=== PATIENT | female | born 1935 | race Caucasian/White ===

== ENCOUNTER 2023-07-29 07:52 | Inpatient (IN) | payer OTHER ==
[2023-07-29 10:12] LABS: EOS % 1.2 % (0-4.5); HEMATOCRIT 37.5 % (32.4-45.2); HEMOGLOBIN 12.2 GM/dL (10.7-15.3); LYMPH % 20.2 % (8-40); MCHC 32.6 g/dl (32.0-36.0); MEAN CELL VOLUME 79.8 fl (80-96); MEAN PLT VOLUME 8.6 fl (7.5-11.1); MONO % 11.2 % (3.8-10.2); NEUT % 66.4 % (42.8-82.8); PLATELET COUNT 273 10^3/uL (134-434); RDW 15.8 % (11.6-15.6); WHITE BLOOD COUNT 9.4 K/mm3 (4.0-10.0)
[2023-07-29 10:20] LABS: INR 1.03 (0.83-1.09); PROTHROMBIN TIME (PATIENT) 11.9 SEC (9.7-13.0)
[2023-07-29 10:48] LABS: CHLORIDE 102 mmol/L (98-107); SODIUM 134 mmol/L (136-145)
[2023-07-29 10:50] LABS: CALCIUM 9.8 mg/dL (8.5-10.1)
[2023-07-29 10:51] LABS: ALBUMIN 3.9 g/dl (3.4-5.0); ANION GAP 2 mmol/L (4-13); BLOOD UREA NITROGEN 33.6 mg/dL (7-18); CO2 30 mmol/L (21-32); GLUCOSE,RANDOM 92 mg/dL (74-106)
[2023-07-29 10:54] LABS: SGOT/AST 23 U/L (15-37); SGPT/ALT 33 U/L (13-61)
[2023-07-29 10:56] LABS: BILIRUBIN,TOTAL 0.4 mg/dL (0.2-1); TOT PROT 6.7 g/dl (6.4-8.2)
[2023-07-29 10:57] LABS: ALK PHOS 51 U/L (45-117)
[2023-07-29 11:18] LABS: CREATININE 0.9 mg/dL (0.55-1.3)
[2023-07-29 12:19] LABS: ERYTHROCYTE SEDIMENTATION RATE 6 mm/hr (0-30)
[2023-07-29] MEDS: ACETAMINOPHEN 325 MG TABLET (FP) PO PRN (20:57)
[2023-07-29] MEDS ORDERED: HEPARIN NA (PORCINE) 5,000 UNITS/ML 1ML VIAL ONE (21:29)
[2023-07-29] MEDS: HEPARIN NA (PORCINE) 5,000 UNITS/ML 1ML VIAL SQ SCH (21:35)
[2023-07-30 01:54] VITALS: BMI 23.8
[2023-07-30 08:29] LABS: EOS % 1.5 % (0-4.5); HEMATOCRIT 36.3 % (32.4-45.2); LYMPH % 28.6 % (8-40); MCH 26.4 pg (25.7-33.7); MCHC 33.1 g/dl (32.0-36.0); MEAN PLT VOLUME 8.2 fl (7.5-11.1); MONO % 11.3 % (3.8-10.2); NEUT % 57.6 % (42.8-82.8); PLATELET COUNT 238 10^3/uL (134-434); RBC 4.54 M/mm3 (3.60-5.2); RDW 15.7 % (11.6-15.6); WHITE BLOOD COUNT 8.2 K/mm3 (4.0-10.0)
[2023-07-30 08:34] LABS: POTASSIUM 4.5 mmol/L (3.5-5.1)
[2023-07-30 08:48] LABS: CALCIUM 9.4 mg/dL (8.5-10.1)
[2023-07-30 08:52] LABS: CREATININE 0.8 mg/dL (0.55-1.3)
[2023-07-30] MEDS ORDERED: methylPREDNISolone NA SUCC 40 MG/1 ML VIAL IVPUSH ONE ×3 (10:00→14:00)
[2023-07-30] MEDS ORDERED: ATENOLOL 50 MG TABLET (FP) PO SCH (10:00)
[2023-07-30] MEDS: FLUTICASONE/UMECLIDIN/VILANTER(200-62.5-25 TRELEGY ELLIPTA) INAHLER IH SCH (10:05)
[2023-07-30] MEDS: HEPARIN NA (PORCINE) 5,000 UNITS/ML 1ML VIAL SQ SCH ×2 (10:07→22:04)
[2023-07-30] MEDS: RAMIPRIL 5 MG CAPSULE PO SCH (11:47)
[2023-07-30] MEDS: ASPIRIN 81 MG CHEWABLE TABLETS PO SCH (11:47)
[2023-07-30] MEDS: HYDROCHLOROTHIAZIDE 12.5 MG CAPSULE (FP) PO SCH (11:49)
[2023-07-30] MEDS: ATORVASTATIN CA 10 MG TABLET (FP) PO SCH (11:50)
[2023-07-30] MEDS: MONTELUKAST NA 10 MG TABLET PO SCH (11:51)
[2023-07-30] MEDS: MEMANTINE HCL 10 MG TABLET (FP) PO SCH ×2 (11:51→22:05)
[2023-07-30] MEDS: EZETIMIBE 10 MG TABLET (FP) PO SCH (11:52)
[2023-07-30] MEDS: INSULIN SLIDING SCALE (NOVOLOG) 1 VIAL SQ SCH ×2 (17:35→22:53)
[2023-07-30] MEDS ORDERED: ALBUTEROL SO4 2.5/IPRATROPIUM 0.5 INH SOL 3 ML VIAL.NEB. NEB PRN (17:51)
[2023-07-30] MEDS: ACETAMINOPHEN 325 MG TABLET (FP) PO PRN (22:14)
[2023-07-31] MEDS: INSULIN SLIDING SCALE (NOVOLOG) 1 VIAL SQ SCH ×4 (06:35→22:29)
[2023-07-31] MEDS ORDERED: MELATONIN 5 MG TABLETS PO PRN (09:16)
[2023-07-31 10:43] LABS: BASO % 0.4 % (0-2.0); EOS % 0.2 % (0-4.5); HEMATOCRIT 37.5 % (32.4-45.2); HEMOGLOBIN 11.8 GM/dL (10.7-15.3); LYMPH % 17.6 % (8-40); MCH 25.7 pg (25.7-33.7); MCHC 31.4 g/dl (32.0-36.0); MEAN CELL VOLUME 81.6 fl (80-96); MEAN PLT VOLUME 8.8 fl (7.5-11.1); MONO % 6.5 % (3.8-10.2); NEUT % 75.3 % (42.8-82.8); PLATELET COUNT 270 10^3/uL (134-434); RDW 15.7 % (11.6-15.6); WHITE BLOOD COUNT 9.1 K/mm3 (4.0-10.0)
[2023-07-31] MEDS: ASPIRIN 81 MG CHEWABLE TABLETS PO SCH (10:53)
[2023-07-31] MEDS: HYDROCHLOROTHIAZIDE 12.5 MG CAPSULE (FP) PO SCH (10:53)
[2023-07-31] MEDS: MEMANTINE HCL 10 MG TABLET (FP) PO SCH ×2 (10:53→22:18)
[2023-07-31] MEDS: MONTELUKAST NA 10 MG TABLET PO SCH (10:53)
[2023-07-31 10:54] LABS: POTASSIUM 4.3 mmol/L (3.5-5.1)
[2023-07-31] MEDS: RAMIPRIL 5 MG CAPSULE PO SCH (10:54)
[2023-07-31] MEDS: EZETIMIBE 10 MG TABLET (FP) PO SCH (10:54)
[2023-07-31] MEDS: NEBIVOLOL 10 MG TABLET (FP) PO SCH (10:55)
[2023-07-31] MEDS: HEPARIN NA (PORCINE) 5,000 UNITS/ML 1ML VIAL SQ SCH ×2 (10:56→22:17)
[2023-07-31] MEDS: ATORVASTATIN CA 10 MG TABLET (FP) PO SCH (11:02)
[2023-07-31] MEDS: FLUTICASONE/UMECLIDIN/VILANTER(200-62.5-25 TRELEGY ELLIPTA) INAHLER IH SCH (11:05)
[2023-07-31 11:11] LABS: CALCIUM 9.5 mg/dL (8.5-10.1)
[2023-07-31 11:12] LABS: ALBUMIN 3.6 g/dl (3.4-5.0); BLOOD UREA NITROGEN 38.7 mg/dL (7-18); MAGNESIUM 1.9 mg/dL (1.8-2.4)
[2023-07-31 11:15] LABS: CREATININE 1.1 mg/dL (0.55-1.3); PHOSPHOROUS 3.5 mg/dL (2.5-4.9)
[2023-07-31 11:16] LABS: BILIRUBIN,TOTAL 0.9 mg/dL (0.2-1); TOT PROT 6.4 g/dl (6.4-8.2)
[2023-07-31] MEDS: ACETAMINOPHEN 325 MG TABLET (FP) PO PRN ×2 (14:15→22:23)
[2023-07-31] MEDS: BENZOCAINE/MENTH/CETYLPYRD CL 1 EACH LOZENGE MM PRN (22:18)
[2023-08-01] MEDS: INSULIN SLIDING SCALE (NOVOLOG) 1 VIAL SQ SCH ×4 (06:35→21:49)
[2023-08-01] MEDS: ASPIRIN 81 MG CHEWABLE TABLETS PO SCH (09:58)
[2023-08-01] MEDS: MONTELUKAST NA 10 MG TABLET PO SCH (09:58)
[2023-08-01] MEDS: EZETIMIBE 10 MG TABLET (FP) PO SCH (09:59)
[2023-08-01] MEDS: HYDROCHLOROTHIAZIDE 12.5 MG CAPSULE (FP) PO SCH (09:59)
[2023-08-01] MEDS: NEBIVOLOL 10 MG TABLET (FP) PO SCH (09:59)
[2023-08-01] MEDS: RAMIPRIL 5 MG CAPSULE PO SCH (09:59)
[2023-08-01] MEDS: MEMANTINE HCL 10 MG TABLET (FP) PO SCH ×2 (09:59→21:29)
[2023-08-01] MEDS: ATORVASTATIN CA 10 MG TABLET (FP) PO SCH (09:59)
[2023-08-01] MEDS: HEPARIN NA (PORCINE) 5,000 UNITS/ML 1ML VIAL SQ SCH ×2 (10:03→21:31)
[2023-08-01] MEDS: FLUTICASONE/UMECLIDIN/VILANTER(200-62.5-25 TRELEGY ELLIPTA) INAHLER IH SCH (10:03)
[2023-08-01 10:07] LABS: BASO % 0.6 % (0-2.0); EOS % 0.3 % (0-4.5); HEMATOCRIT 37.7 % (32.4-45.2); HEMOGLOBIN 12.2 GM/dL (10.7-15.3); LYMPH % 6.4 % (8-40); MCH 25.8 pg (25.7-33.7); MCHC 32.3 g/dl (32.0-36.0); MEAN CELL VOLUME 79.8 fl (80-96); MEAN PLT VOLUME 7.9 fl (7.5-11.1); MONO % 11.1 % (3.8-10.2); NEUT % 81.6 % (42.8-82.8); PLATELET COUNT 226 10^3/uL (134-434); RBC 4.73 M/mm3 (3.60-5.2); RDW 15.7 % (11.6-15.6); WHITE BLOOD COUNT 9.4 K/mm3 (4.0-10.0)
[2023-08-01 10:19] LABS: POTASSIUM 4.2 mmol/L (3.5-5.1)
[2023-08-01 10:21] LABS: ALBUMIN 3.5 g/dl (3.4-5.0); BLOOD UREA NITROGEN 41.1 mg/dL (7-18); CALCIUM 9.5 mg/dL (8.5-10.1)
[2023-08-01 10:22] LABS: MAGNESIUM 1.8 mg/dL (1.8-2.4)
[2023-08-01 10:25] LABS: CREATININE 1.1 mg/dL (0.55-1.3)
[2023-08-01 10:26] LABS: BILIRUBIN,TOTAL 0.5 mg/dL (0.2-1); TOT PROT 6.1 g/dl (6.4-8.2)
[2023-08-01] MEDS: ACETAMINOPHEN 325 MG TABLET (FP) PO PRN (17:53)
[2023-08-01] MEDS: guaiFENesin 200 MG/10 ML 10 ML UNIT-DOSE CUPS PO PRN (17:53)
[2023-08-01] MEDS: BENZOCAINE/MENTH/CETYLPYRD CL 1 EACH LOZENGE MM PRN (23:01)
[2023-08-02] MEDS: INSULIN SLIDING SCALE (NOVOLOG) 1 VIAL SQ SCH ×4 (06:54→21:32)
[2023-08-02 09:01] LABS: HEMATOCRIT 37.9 % (32.4-45.2); HEMOGLOBIN 11.9 GM/dL (10.7-15.3); MCH 25.5 pg (25.7-33.7); MCHC 31.4 g/dl (32.0-36.0); MEAN CELL VOLUME 81.4 fl (80-96); MEAN PLT VOLUME 8.8 fl (7.5-11.1); PLATELET COUNT 229 10^3/uL (134-434); RBC 4.66 M/mm3 (3.60-5.2); RDW 15.6 % (11.6-15.6); WHITE BLOOD COUNT 7.8 K/mm3 (4.0-10.0)
[2023-08-02] MEDS: guaiFENesin 200 MG/10 ML 10 ML UNIT-DOSE CUPS PO PRN ×2 (09:11→21:30)
[2023-08-02 09:12] LABS: CALCIUM 9.6 mg/dL (8.5-10.1)
[2023-08-02] MEDS: EZETIMIBE 10 MG TABLET (FP) PO SCH (09:12)
[2023-08-02] MEDS: MEMANTINE HCL 10 MG TABLET (FP) PO SCH ×2 (09:12→21:29)
[2023-08-02] MEDS: NEBIVOLOL 10 MG TABLET (FP) PO SCH (09:12)
[2023-08-02] MEDS: HYDROCHLOROTHIAZIDE 12.5 MG CAPSULE (FP) PO SCH (09:12)
[2023-08-02] MEDS: RAMIPRIL 5 MG CAPSULE PO SCH (09:12)
[2023-08-02] MEDS: MONTELUKAST NA 10 MG TABLET PO SCH (09:12)
[2023-08-02 09:13] LABS: ALBUMIN 3.4 g/dl (3.4-5.0); BLOOD UREA NITROGEN 39.6 mg/dL (7-18)
[2023-08-02] MEDS: ATORVASTATIN CA 10 MG TABLET (FP) PO SCH (09:13)
[2023-08-02] MEDS: HEPARIN NA (PORCINE) 5,000 UNITS/ML 1ML VIAL SQ SCH ×2 (09:13→21:29)
[2023-08-02] MEDS: ASPIRIN 81 MG CHEWABLE TABLETS PO SCH (09:13)
[2023-08-02 09:16] LABS: CREATININE 0.9 mg/dL (0.55-1.3)
[2023-08-02 09:17] LABS: BILIRUBIN,TOTAL 0.7 mg/dL (0.2-1); TOT PROT 6.1 g/dl (6.4-8.2)
[2023-08-02] MEDS: FLUTICASONE/UMECLIDIN/VILANTER(200-62.5-25 TRELEGY ELLIPTA) INAHLER IH SCH (09:21)
[2023-08-02 11:25] LABS: ANISOCYTOSIS 2+; MACROCYTOSIS 0; OVALOCYTE 1+
[2023-08-02] MEDS: ACETAMINOPHEN 325 MG TABLET (FP) PO PRN (21:30)
[2023-08-03] MEDS: INSULIN SLIDING SCALE (NOVOLOG) 1 VIAL SQ SCH ×4 (06:04→21:40)
[2023-08-03] MEDS: EZETIMIBE 10 MG TABLET (FP) PO SCH (10:33)
[2023-08-03] MEDS: MONTELUKAST NA 10 MG TABLET PO SCH (10:34)
[2023-08-03] MEDS: ATORVASTATIN CA 10 MG TABLET (FP) PO SCH (10:34)
[2023-08-03] MEDS: ASPIRIN 81 MG CHEWABLE TABLETS PO SCH (10:34)
[2023-08-03] MEDS: MEMANTINE HCL 10 MG TABLET (FP) PO SCH ×2 (10:34→21:38)
[2023-08-03] MEDS: FLUTICASONE/UMECLIDIN/VILANTER(200-62.5-25 TRELEGY ELLIPTA) INAHLER IH SCH (10:36)
[2023-08-03] MEDS: NEBIVOLOL 10 MG TABLET (FP) PO SCH (10:36)
[2023-08-03] MEDS: HYDROCHLOROTHIAZIDE 12.5 MG CAPSULE (FP) PO SCH (10:36)
[2023-08-03] MEDS: RAMIPRIL 5 MG CAPSULE PO SCH (10:36)
[2023-08-03] MEDS: HEPARIN NA (PORCINE) 5,000 UNITS/ML 1ML VIAL SQ SCH ×3 (10:36→21:43)
[2023-08-03] MEDS ORDERED: PROMETHAZINE HCL 25 MG TABLET PO PRN ×2 (13:49→20:02)
[2023-08-03] MEDS ORDERED: FLUTICASONE PROP 0.05% 16 GM NASAL SPRAY NS SCH (15:00)
[2023-08-03] MEDS ORDERED: LIDOCAINE HCL 1%, 10 MG/ML (20ML VIAL) ONE (16:15)
[2023-08-03] MEDS ORDERED: HEPARIN NA (PORCINE) 5,000 UNITS/ML 1ML VIAL ONE (16:16)
[2023-08-03] MEDS ORDERED: BUPIVACAINE HCL/PF 0.5% (5MG/ML) 10 ML VIAL ONE (16:16)
[2023-08-03] MEDS ORDERED: FENTANYL CITRATE/PF 50 MCG/ML VIAL ONE ×2 (18:18→18:40)
[2023-08-03] MEDS ORDERED: MIDAZOLAM HCL 2 MG/2 ML SINGLE DOSE VIAL ONE (18:19)
[2023-08-03] MEDS ORDERED: DEXAMETHASONE SOD PHOSPHATE 4 MG/1 ML VIAL ONE (18:25)
[2023-08-03] MEDS ORDERED: ONDANSETRON 4 MG/2 ML VIAL ONE (18:25)
[2023-08-03] MEDS ORDERED: HEPARIN NA (PORCINE) 5,000 UNITS/ML 1ML VIAL SQ ONE (18:26)
[2023-08-03] MEDS ORDERED: PROPOFOL 20 ML ONE (19:00)
[2023-08-03] MEDS ORDERED: VANCOMYCIN 1,000 MG VIAL (RESTRICTED TO ID ONLY) ONE (19:01)
[2023-08-03] MEDS ORDERED: LIDOCAINE HCL 1%, 10 MG/ML (20ML VIAL) INF ONE (19:10)
[2023-08-03] MEDS ORDERED: BUPIVACAINE HCL/PF 0.5% (5 MG/ML) 30 ML VIAL IJ ONE (19:25)
[2023-08-03] MEDS ORDERED: ONDANSETRON 4 MG/2 ML VIAL IVPUSH PRN ×2 (19:41→20:02)
[2023-08-03] MEDS ORDERED: guaiFENesin 200 MG/10 ML 10 ML UNIT-DOSE CUPS PO PRN (20:02)
[2023-08-03] MEDS ORDERED: MELATONIN 5 MG TABLETS PO PRN (20:02)
[2023-08-03] MEDS ORDERED: ALBUTEROL SO4 2.5/IPRATROPIUM 0.5 INH SOL 3 ML VIAL.NEB. NEB PRN (20:02)
[2023-08-03] MEDS ORDERED: BENZOCAINE/MENTH/CETYLPYRD CL 1 EACH LOZENGE MM PRN (20:02)
[2023-08-04] MEDS: INSULIN SLIDING SCALE (NOVOLOG) 1 VIAL SQ SCH ×4 (06:06→22:49)
[2023-08-04 09:35] LABS: BASO % 0.3 % (0-2.0); HEMATOCRIT 36.1 % (32.4-45.2); HEMOGLOBIN 11.8 GM/dL (10.7-15.3); MCH 26.2 pg (25.7-33.7); MCHC 32.8 g/dl (32.0-36.0); MEAN CELL VOLUME 79.9 fl (80-96); MEAN PLT VOLUME 8.4 fl (7.5-11.1); MONO % 14.5 % (3.8-10.2); NEUT % 72.2 % (42.8-82.8); PLATELET COUNT 204 10^3/uL (134-434); RBC 4.52 M/mm3 (3.60-5.2); WHITE BLOOD COUNT 5.9 K/mm3 (4.0-10.0)
[2023-08-04] MEDS: MONTELUKAST NA 10 MG TABLET PO SCH (09:41)
[2023-08-04] MEDS: MEMANTINE HCL 10 MG TABLET (FP) PO SCH ×2 (09:41→21:36)
[2023-08-04] MEDS: ASPIRIN 81 MG CHEWABLE TABLETS PO SCH (09:41)
[2023-08-04] MEDS: HYDROCHLOROTHIAZIDE 12.5 MG CAPSULE (FP) PO SCH (09:41)
[2023-08-04] MEDS: EZETIMIBE 10 MG TABLET (FP) PO SCH (09:42)
[2023-08-04 09:44] LABS: POTASSIUM 4.3 mmol/L (3.5-5.1)
[2023-08-04] MEDS: RAMIPRIL 5 MG CAPSULE PO SCH (09:44)
[2023-08-04] MEDS: FLUTICASONE/UMECLIDIN/VILANTER(200-62.5-25 TRELEGY ELLIPTA) INAHLER IH SCH (09:46)
[2023-08-04] MEDS: HEPARIN NA (PORCINE) 5,000 UNITS/ML 1ML VIAL SQ SCH ×2 (09:50→22:49)
[2023-08-04] MEDS: FLUTICASONE PROP 0.05% 16 GM NASAL SPRAY NS SCH (09:50)
[2023-08-04 09:52] LABS: CALCIUM 9.2 mg/dL (8.5-10.1)
[2023-08-04 09:53] LABS: ALBUMIN 3.3 g/dl (3.4-5.0)
[2023-08-04 09:56] LABS: CREATININE 0.9 mg/dL (0.55-1.3); PHOSPHOROUS 3.6 mg/dL (2.5-4.9)
[2023-08-04 09:57] LABS: BILIRUBIN,TOTAL 0.6 mg/dL (0.2-1)
[2023-08-04 09:58] LABS: TOT PROT 6.4 g/dl (6.4-8.2)
[2023-08-04] MEDS ORDERED: NEBIVOLOL 10 MG TABLET (FP) PO SCH (10:00)
[2023-08-04] MEDS ORDERED: HYDROCHLOROTHIAZIDE 12.5 MG CAPSULE (FP) PO SCH (10:00)
[2023-08-04] MEDS ORDERED: RAMIPRIL 5 MG CAPSULE PO SCH (10:00)
[2023-08-04] MEDS: AZTREONAM 1 GM in DEXTROSE 5%-WATER - 50 ML IVPB SCH (17:39)
[2023-08-04] MEDS: VANCOMYCIN/WATER FOR INJ (PEG) 1,000 MG/200 ML BAG IVPB SCH (18:24)
[2023-08-04] MEDS: ACETAMINOPHEN 325 MG TABLET (FP) PO PRN (19:01)
[2023-08-04] MEDS: ATORVASTATIN CA 10 MG TABLET (FP) PO SCH (21:36)
[2023-08-04 23:11] VITALS: RESP 18
[2023-08-05] MEDS: ACETAMINOPHEN 325 MG TABLET (FP) PO PRN (02:00)
[2023-08-05] MEDS ORDERED: KETOROLAC TROMETHAMINE 15 MG/ML VIAL IVPUSH ONE (03:06)
[2023-08-05] MEDS: AZTREONAM 1 GM in DEXTROSE 5%-WATER - 50 ML IVPB SCH ×2 (05:14→18:33)
[2023-08-05] MEDS: INSULIN SLIDING SCALE (NOVOLOG) 1 VIAL SQ SCH ×4 (06:27→21:14)
[2023-08-05 09:53] LABS: BASO % 0.7 % (0-2.0); HEMATOCRIT 35.6 % (32.4-45.2); HEMOGLOBIN 11.1 GM/dL (10.7-15.3); LYMPH % 20.2 % (8-40); MCH 25.5 pg (25.7-33.7); MCHC 31.1 g/dl (32.0-36.0); MEAN CELL VOLUME 82.1 fl (80-96); MEAN PLT VOLUME 8.2 fl (7.5-11.1); MONO % 14.7 % (3.8-10.2); NEUT % 63.4 % (42.8-82.8); PLATELET COUNT 196 10^3/uL (134-434); RBC 4.33 M/mm3 (3.60-5.2); RDW 15.7 % (11.6-15.6); WHITE BLOOD COUNT 5.9 K/mm3 (4.0-10.0)
[2023-08-05] MEDS: ASPIRIN 81 MG CHEWABLE TABLETS PO SCH (10:00)
[2023-08-05] MEDS: MEMANTINE HCL 10 MG TABLET (FP) PO SCH (10:00)
[2023-08-05] MEDS: MONTELUKAST NA 10 MG TABLET PO SCH ×2 (10:00→10:13)
[2023-08-05] MEDS: EZETIMIBE 10 MG TABLET (FP) PO SCH (10:00)
[2023-08-05 10:12] LABS: POTASSIUM 3.7 mmol/L (3.5-5.1)
[2023-08-05] MEDS: FLUTICASONE/UMECLIDIN/VILANTER(200-62.5-25 TRELEGY ELLIPTA) INAHLER IH SCH (10:13)
[2023-08-05] MEDS: HEPARIN NA (PORCINE) 5,000 UNITS/ML 1ML VIAL SQ SCH ×2 (10:14→21:13)
[2023-08-05] MEDS: HYDROCHLOROTHIAZIDE 12.5 MG CAPSULE (FP) PO SCH (10:15)
[2023-08-05] MEDS: FLUTICASONE PROP 0.05% 16 GM NASAL SPRAY NS SCH (10:15)
[2023-08-05] MEDS: RAMIPRIL 5 MG CAPSULE PO SCH (10:15)
[2023-08-05] MEDS: NEBIVOLOL 5 MG TABLET (FP) PO SCH (10:16)
[2023-08-05 10:20] LABS: BLOOD UREA NITROGEN 44.4 mg/dL (7-18); CALCIUM 9.1 mg/dL (8.5-10.1)
[2023-08-05 10:24] LABS: TOT PROT 5.8 g/dl (6.4-8.2)
[2023-08-05 10:25] LABS: BILIRUBIN,TOTAL 0.6 mg/dL (0.2-1)
[2023-08-05] MEDS: VANCOMYCIN/WATER FOR INJ (PEG) 1,000 MG/200 ML BAG IVPB SCH (18:39)
[2023-08-05] MEDS: guaiFENesin/D-METHORPHAN HB 10 ML UNIT-DOSE CUPS PO PRN (21:14)
[2023-08-05] MEDS: ATORVASTATIN CA 10 MG TABLET (FP) PO SCH (21:14)
[2023-08-06] MEDS: AZTREONAM 1 GM in DEXTROSE 5%-WATER - 50 ML IVPB SCH (05:34)
[2023-08-06] MEDS: INSULIN SLIDING SCALE (NOVOLOG) 1 VIAL SQ SCH ×4 (06:02→21:35)
[2023-08-06] MEDS: RAMIPRIL 5 MG CAPSULE PO SCH (10:48)
[2023-08-06] MEDS: ASPIRIN 81 MG CHEWABLE TABLETS PO SCH (10:48)
[2023-08-06] MEDS: HYDROCHLOROTHIAZIDE 12.5 MG CAPSULE (FP) PO SCH (10:48)
[2023-08-06] MEDS: EZETIMIBE 10 MG TABLET (FP) PO SCH (10:48)
[2023-08-06] MEDS: NEBIVOLOL 5 MG TABLET (FP) PO SCH (10:49)
[2023-08-06] MEDS: FLUTICASONE PROP 0.05% 16 GM NASAL SPRAY NS SCH (10:50)
[2023-08-06] MEDS: FLUTICASONE/UMECLIDIN/VILANTER(200-62.5-25 TRELEGY ELLIPTA) INAHLER IH SCH (10:51)
[2023-08-06] MEDS: MEMANTINE HCL 28 MG PO SCH (10:52)
[2023-08-06] MEDS: HEPARIN NA (PORCINE) 5,000 UNITS/ML 1ML VIAL SQ SCH ×2 (10:57→21:35)
[2023-08-06 11:09] LABS: BASO % 0.7 % (0-2.0); EOS % 0.7 % (0-4.5); HEMATOCRIT 37.9 % (32.4-45.2); HEMOGLOBIN 11.7 GM/dL (10.7-15.3); LYMPH % 21.2 % (8-40); MCH 25.4 pg (25.7-33.7); MCHC 30.8 g/dl (32.0-36.0); MEAN CELL VOLUME 82.4 fl (80-96); MEAN PLT VOLUME 8.1 fl (7.5-11.1); MONO % 15.1 % (3.8-10.2); NEUT % 62.3 % (42.8-82.8); PLATELET COUNT 220 10^3/uL (134-434); RDW 16.1 % (11.6-15.6); WHITE BLOOD COUNT 8.3 K/mm3 (4.0-10.0)
[2023-08-06 11:29] LABS: POTASSIUM 4.1 mmol/L (3.5-5.1)
[2023-08-06 12:41] LABS: CALCIUM 9.5 mg/dL (8.5-10.1)
[2023-08-06 12:42] LABS: ALBUMIN 3.2 g/dl (3.4-5.0); BLOOD UREA NITROGEN 30.8 mg/dL (7-18)
[2023-08-06 12:44] LABS: CREATININE 0.8 mg/dL (0.55-1.3)
[2023-08-06 12:46] LABS: BILIRUBIN,TOTAL 0.7 mg/dL (0.2-1); TOT PROT 6.1 g/dl (6.4-8.2)
[2023-08-06] MEDS ORDERED: DAPTOMYCIN 500 MG in SODIUM CHLORIDE 50 ML IVPB SCH (18:00)
[2023-08-06] MEDS: guaiFENesin/D-METHORPHAN HB 10 ML UNIT-DOSE CUPS PO PRN (21:36)
[2023-08-07] MEDS: INSULIN SLIDING SCALE (NOVOLOG) 1 VIAL SQ SCH ×3 (06:03→17:38)
[2023-08-07 09:56] LABS: BASO % 0.6 % (0-2.0); EOS % 0.8 % (0-4.5); HEMATOCRIT 35.6 % (32.4-45.2); HEMOGLOBIN 11.8 GM/dL (10.7-15.3); LYMPH % 22.1 % (8-40); MCH 26.6 pg (25.7-33.7); MCHC 33.3 g/dl (32.0-36.0); MEAN PLT VOLUME 8.2 fl (7.5-11.1); MONO % 9.5 % (3.8-10.2); PLATELET COUNT 237 10^3/uL (134-434); RBC 4.45 M/mm3 (3.60-5.2); RDW 16.5 % (11.6-15.6); WHITE BLOOD COUNT 8.4 K/mm3 (4.0-10.0)
[2023-08-07] MEDS ORDERED: DAPTOMYCIN 500 MG in SODIUM CHLORIDE 50 ML IVPB SCH (10:00)
[2023-08-07] MEDS: RAMIPRIL 5 MG CAPSULE PO SCH (10:09)
[2023-08-07] MEDS: NEBIVOLOL 5 MG TABLET (FP) PO SCH (10:09)
[2023-08-07] MEDS: ASPIRIN 81 MG CHEWABLE TABLETS PO SCH (10:09)
[2023-08-07] MEDS: EZETIMIBE 10 MG TABLET (FP) PO SCH (10:09)
[2023-08-07] MEDS: HYDROCHLOROTHIAZIDE 12.5 MG CAPSULE (FP) PO SCH (10:09)
[2023-08-07] MEDS: MEMANTINE HCL 28 MG PO SCH (10:10)
[2023-08-07] MEDS: FLUTICASONE/UMECLIDIN/VILANTER(200-62.5-25 TRELEGY ELLIPTA) INAHLER IH SCH (10:11)
[2023-08-07] MEDS: HEPARIN NA (PORCINE) 5,000 UNITS/ML 1ML VIAL SQ SCH (10:11)
[2023-08-07] MEDS: FLUTICASONE PROP 0.05% 16 GM NASAL SPRAY NS SCH (10:16)
[2023-08-07 10:21] LABS: POTASSIUM 3.7 mmol/L (3.5-5.1)
[2023-08-07 10:28] LABS: ALBUMIN 3.2 g/dl (3.4-5.0); CALCIUM 9.4 mg/dL (8.5-10.1)
[2023-08-07 10:29] LABS: BLOOD UREA NITROGEN 28.2 mg/dL (7-18)
[2023-08-07 10:31] LABS: CREATININE 0.8 mg/dL (0.55-1.3)
[2023-08-07 10:33] LABS: BILIRUBIN,TOTAL 0.7 mg/dL (0.2-1); TOT PROT 6.3 g/dl (6.4-8.2)
[2023-08-07] MEDS ORDERED: DAPTOMYCIN 450 MG in SODIUM CHLORIDE 50 ML IVPB SCH (18:00)
[2023-08-07 18:28] VITALS: BP 131/51; PULSE 58; TEMP 97.4
== END 2023-08-07 20:26 | disposition home or self-care (01) | DRG 629 ==
LOC: JER 07:52 → JERBED 11:59 → J5S 23:33
PROVIDERS: ADMIT Internal Medicine; ATTEND Internal Medicine
PROC: B40GYZZ Plain Radiography of Left Lower Extremity Arteries using Other Contrast (ICD-10-PCS; 2023-08-03)
PROC: 0Q9R0ZZ Drainage of Left Toe Phalanx, Open Approach (ICD-10-PCS; principal; 2023-08-03 17:00)
PROC: 0QBP0Z2 Excision of Left Metatarsal, Sesamoid Bone(s) 1st Toe, Open Approach (ICD-10-PCS; 2023-08-03 17:00)
PROC: 02HV33Z Insertion of Infusion Device into Superior Vena Cava, Percutaneous Approach (ICD-10-PCS; 2023-08-07)
PROC: B548ZZA Ultrasonography of Superior Vena Cava, Guidance (ICD-10-PCS; 2023-08-07)
DX: E11.69 Type 2 diabetes mellitus with other specified complication (principal); I50.22 Chronic systolic (congestive) heart failure; M86.8X7 Other osteomyelitis, ankle and foot; I25.10 Atherosclerotic heart disease of native coronary artery without angina pectoris; E11.51 Type 2 diabetes mellitus with diabetic peripheral angiopathy without gangrene; I11.0 Hypertensive heart disease with heart failure; E78.5 Hyperlipidemia, unspecified; I25.2 Old myocardial infarction; J44.9 Chronic obstructive pulmonary disease, unspecified
CPT/HCPCS: 36415; 36569; 71045-TC-FY; 75635-TC; 76000-TC-FY; 77001-TC-FY; 80048; 80053; 82550; 82962; 83735; 84100; 85025; 85610; 85651; 86140; 86850; 86900; 86901; 87040; 87070; 87075; 87186; 87205; 88304-TC; 88311-TC; 93005; 93010; 94760; 97116-GP; 97161-GP; 99285-25; C1751; J0878; J1644; Q9967